=== PATIENT | male | born 1985 ===

== ENCOUNTER 2022-09-06 19:47 | Observation (INO) | payer MEDICAID, SELFPAY ==
[2022-09-06 19:59] VITALS: BP 151/93; PULSE 106; RESP 16; TEMP 38.2; O2SAT 98; BMI 33.3
[2022-09-06 20:30] LABS: Basophils # 0.1 10^3/uL (0.0-0.1); Basophils % 0.4 %; Eosinophils # 0.1 10^3/uL (0.0-0.8); Eosinophils % 0.5 %; Hematocrit 45.8 % (42.0-52.0); Hemoglobin 15.1 g/dL (11.7-16.6); Lymphocytes # 1.8 10^3/uL (0.8-4.8); Lymphocytes % 15.7 %; Mean Corpuscular Hemoglobin 28.6 pg (28.0-34.0); Mean Corpuscular Volume 86.7 fl (80-94); Monocytes # 0.6 10^3/uL (0.2-0.9); Monocytes % 5.2 %; Neutrophils # 9.13 10^3/uL (1.8-7.7); Neutrophils % 77.9 %; Nucleated Red Blood Cells % 0 %; Platelet Count 247 10^3/cmm (130-400); Red Blood Count 5.28 10^6/uL (4.1-5.3); Red Cell Distribution Width 12.4 % (12.1-15.1); White Blood Count 11.7 10^3/uL (4.0-10.0)
[2022-09-06 20:49] LABS: Alanine Aminotransferase 36 U/L (0-41); Albumin Level 4.4 g/dL (3.5-5.2); Alkaline Phosphatase 106 U/L (40-130); Blood Urea Nitrogen 12 mg/dL (6-20); Calcium 9.2 mg/dL (8.5-10.5); Carbon Dioxide 26 mmol/L (22-29); Chloride 100 mmol/L (98-107); Creatinine Clr Calc Pharmacy 129.6023; Globulin 2.1 g/dL (1.3-4.6); Glomerular Filtration Rate 108.2 mL/min (90-130); Glucose 100 mg/dL (65-115); Lipase 62 U/L (13-60); Osmolality Calculated 282 mOsm/kg (285-295); Sodium 136 mmol/L (136-145); Total Bilirubin 0.3 mg/dL (0.15-1.2); Total Protein 6.5 g/dL (6.6-8.7)
[2022-09-06 20:51] LABS: Anion Gap 14.2 (5-19); Aspartate Amino Transferase 19 U/L (0-40); Potassium 4.2 mmol/L (3.5-5.1)
--- NOTE | 2022-09-06 21:29 | CTR_ITS ---
PROCEDURE INFORMATION: Exam: CT Abdomen And Pelvis With Contrast Exam date and time: 09/06/2022 9:53 PM Age: 36 years old Clinical indication: Pain and abnormal findings; Abnormal lab test; Elevated lipase and elevated wbc; Abdominal pain; Localized; Right; Patient HX: RT sided abd pain with elevated wbc and lipase. ; Additional info: Right sided abdominal pain, tachy, febrile, wbc >11. Has had pepto in the last 48hrs TECHNIQUE: Imaging protocol: Computed tomography of the abdomen and pelvis with contrast. Radiation optimization: All CT scans at this facility use at least one of these dose optimization techniques: automated exposure control; mA and/or kV adjustment per patient size (includes targeted exams where dose is matched to clinical indication); or iterative reconstruction. Contrast material: OMNI 350; Contrast volume: 100 ml; Contrast route: INTRAVENOUS (IV); REPORTING DATA: Count of CT and Cardiac NM exams in prior 12 months: This patient has received 0 known CTs and 0 known cardiac nuclear medicine studies in the 12 months prior to the current study. COMPARISON: No relevant prior studies available. RADIATION DOSE METRICS: Total DLP (mGy-cm): 857.48 FINDINGS: Liver: Hepatic steatosis. Gallbladder and bile ducts: Normal. No calcified stones. No ductal dilation. Pancreas: Normal. No ductal dilation. Spleen: Normal. No splenomegaly. Adrenal glands: Normal. No mass. Kidneys and ureters: Normal. No hydronephrosis. Stomach and bowel: Unremarkable. No obstruction. No mucosal thickening. Appendix: Appendix dilated to 7.5 mm with surrounding edema and a small amount of nonlocalized fluid, findings are concerning for a developing appendicitis, please correlate clinically. Intraperitoneal space: Unremarkable. No free air. No significant fluid collection. Vasculature: Unremarkable. No abdominal aortic aneurysm. Lymph nodes: Unremarkable. No enlarged lymph nodes. Urinary bladder: Unremarkable as visualized. Reproductive: Unremarkable as visualized. Bones/joints: Bilateral L5 pars interarticularis defects. Soft tissues: Small left inguinal hernia containing omentum without bowel. CT/CT abdomen pelvis w con* [id number] IMPRESSION: 1. Appendix dilated to 7.5 mm with surrounding edema and a small amount of nonlocalized fluid, findings are concerning for a developing appendicitis, please correlate clinically. 2. Hepatic steatosis. 3. Bilateral L5 pars interarticularis defects. 4. Small left inguinal hernia containing omentum without bowel.
[2022-09-06] MEDS: ondansetron 2 mg/ML SDV 2 mL 4 MG IVP (21:46)
[2022-09-06] MEDS: ketorolac 30 mg/mL INJ IVP (21:46)
[2022-09-06] MEDS: sodium chloride 0.9% 1,000 ML 999 ML IV (21:46)
[2022-09-06] MEDS: iohexol 350 mg/mL 500 mL Btl (per mL) IV (21:54)
--- NOTE | 2022-09-06 22:12 | W.ED.ABDPA2 ---
HPI - Abdominal Pain General: Chief Complaint: Abdominal Pain Stated Complaint: ABD Pain Time Seen by Provider: 09/06/22 21:21 Source: patient and family Mode of arrival: ambulatory Limitations: no limitations History of Present Illness: Patient presents to the emergency department today accompanied by his for evaluation treatment of complaints of generalized right-sided abdominal pain, nausea, and chills. Patient noticed onset yesterday of some abdominal discomfort which has acutely worsened throughout the day today. He has been intensely nauseated but no vomiting. He has been chilled and they suspect fever at home but did not check. He denies diarrhea. He states he feels extremely bloated and full and has had very little p.o. intake today due to his symptoms. Patient states the last few days he was in [place] and then went to a wedding. He states during that time he only had approximately 4 beers. No others at home similarly ill. He has had generalized upper respiratory complaints for quite some time that are currently unchanged. He took Pepto yesterday without improvement. Review of Systems General: Reports: 10 or more systems reviewed and unremarkable except in HPI and below PFSH ED PFSH: Family History Grandmother Diabetes Social History Smoking and tobacco status: never smoked Alcohol intake: never Substance/Drug Use: never Adopted: No Caregiver/support person: No Lives independently: No Household members: spouse Current occupational status: employed Sexually active: Yes Do you think of yourself as: Straight/Heterosexual Current gender identity: Male Physical Exam Const: COMMON NORMALS: patient oriented x3 and alert OTHER: Patient appears nontoxic but obviously uncomfortable and feels unwell. HENMT: COMMON NORMALS: normocephalic, atraumatic, hearing grossly normal bilaterally and moist oral mucous membranes HEAD & SCALP: normocephalic and atraumatic Eye: COMMON NORMALS: Equal, round and reactive pupils present, EOMs intact bilaterally and conjunctivae normal CONJUNCTIVA: Yes conjunctivae normal PUPIL: Yes Equal, round and reactive pupils present Neck/C-Spine: COMMON NORMALS: full ROM and no JVD Lymph: LYMPHATIC: no lymphadenopathy noted Resp: COMMON NORMALS: normal respiratory effort, No retractions, No use of accessory muscles and clear to auscultation bilaterally AUSCULTATION: clear to auscultation bilaterally Cardio: COMMON NORMALS: no JVD, regular rate and regular rhythm RATE: regular rate RHYTHM: regular rhythm GI: OTHER: Abdomen does seem bloated and full though it is still soft on palpation. Patient with tenderness to the right lower abdomen extending up to the right lateral side of the umbilical region. Centeno's negative. No specific epigastric tenderness. Hyperactive bowel sounds throughout. : COMMON NORMALS: Yes no CVA tenderness BLADDER/KIDNEY EXAM: Yes no CVA tenderness Back/Pelvis: COMMON NORMALS: no CVA tenderness, no thoracic nor lumbar tenderness and thoraco-lumbar ROM normal Extremity: COMMON NORMALS: normal to inspection, full ROM and capillary refill normal Neuro: COMMON NORMALS: patient oriented x3 SENSORIUM/ORIENTATION: Yes alert Psych: COMMON NORMALS: mental status grossly normal, Normal thought process present, cooperative, normal affect and activity/motor behavior normal THOUGHT PROCESS: Normal thought process present Skin: COMMON NORMALS: no rashes or lesions noted and no wounds GENERAL SKIN EXAM: no rashes or lesions noted Course Vital Signs: Vital signs: Vital Signs Temperature 100.8 F H 09/07/22 00:23 Pulse Rate 97 09/07/22 00:23 Respiratory Rate 16 09/07/22 00:23 Blood Pressure 124/66 09/07/22 00:23 Pulse Oximetry 96 09/07/22 00:23 Oxygen Delivery Me thod Room Air 09/07/22 00:17 MDM - Abdominal Pain Medical Decision Making Patient presented to the emergency department today for general ill feeling, fever, and abdominal pain. Patient has had worsening abdominal pain over the last 48 hours without any known cause. While he has been nauseated he has not vomited. She denies diarrhea. No other similarly ill at home. Lab work showed slightly elevated white count and a slightly elevated lipase, but, I had concerns on his physical examination due to the tenderness he has in the right lower side. I did request we proceed on with CT exam which patient agreed. CT examination was concerning for onset acute appendicitis and I did receive a call from [facility] to discuss these results. I was able to speak with Dr. Jean with general surgery regarding the patient's findings here in the ER today. He requested patient be started on antibiotics, be given pain medicine, and Zofran. Patient was notified of his findings of appendicitis and need to remain in the hospital and admitted to general surgery patient verbalized understanding and agreement to treatment plan. We will defer care to general surgery specially at this time for further management, intervention, and treatment of this patient. Differential Diagnosis Likely abdominal pain, acute appendicitis, constipation, diverticulitis, gastroenteritis and pancreatitis Lab Data 09/06/22 20:23 09/06/22 20:23 Labs/Radiology: Radiology Impressions Abdomen/Pelvis CT 09/06/22 21:29 IMPRESSION: 1. Appendix dilated to 7.5 mm with surrounding edema and a small amount of nonlocalized fluid, findings are concerning for a developing appendicitis, please correlate clinically. 2. Hepatic steatosis. 3. Bilateral L5 pars interarticularis defects. 4. Small left inguinal hernia containing omentum without bowel. ADDENDUM: 09/06/222241 THIS REPORT CONTAINS FINDINGS THAT MAY BE CRITICAL TO PATIENT CARE. The findings were verbally communicated via telephone conference with ALAN PARK at 10:40 PM CDT on 09/06/2022. The findings were acknowledged and understood. Laboratory Results WBC 11.7 10^3/uL (4.0-10.0) H 09/06/22 20: RBC 5.28 10^6/uL (4.1-5.3) 09/06/22 20: Hgb 15.1 g/dL (11.7-16.6) 09/06/22 20: Hct 45.8 % (42.0-52.0) 09/06/22: MCV 86.7 fl (80-94) 09/06/22 20: MCH 28.6 pg (28.0-34.0) 09/06/22 20: MCHC 33.0 g/dL (30.0-36.0) 09/06/22: RDW 12.4 % (12.1-15.1) 09/06/22: Plt Count 247 10^3/cmm (130-400) 09/06/22 20: MPV 10.0 fL (7.4-10.4) 09/06/22 20: Neut % (Auto) 77.9 % 09/06/22: Lymph % (Auto) 15.7 % 09/06/22 20: [place] % (Auto) 5.2 % 09/06/22 20: Eos % (Auto) 0.5 % 09/06/22 20: Baso % (Auto) 0.4 % 09/06/22 20: Neut # (Auto) 9.13 10^3/uL (1.8-7.7) H 09/06/22 20: Lymph # (Auto) 1.8 10^3/uL (0.8-4.8) 09/06/22 20: [place] # (Auto) 0.6 10^3/uL (0.2-0.9) 09/06/22 20: Eos # (Auto) 0.1 10^3/uL (0.0-0.8) 09/06/22: Baso # (Auto) 0.1 10^3/uL (0.0-0.1) 09/06/22 20: Nucleated RBC % (auto) 0 % 09/06/22: Nucleated RBCs # 0.0 /100WBC 09/06/22 20: Sodium 136 mmol/L (136-145) 09/06/22 20: Potassium 4.2 mmol/L (3.5-5.1) 09/06/22 20: Chloride 100 mmol/L (98-107) 09/06/22 20: Carbon Dioxide 26 mmol/L (22-29) 09/06/22 20: Anion Gap 14.2 (5-19) 09/06/22 20: BUN 12 mg/dL (6-20) 09/06/22 20: Creatinine 0.8 mg/dL (0.7-1.2) 09/06/22 20: GFR Calculation 108.2 mL/min (90-130) 09/06/22 20: Glucose 100 mg/dL (65-115) 09/06/22 20: Calculated Osmolality 282 mOsm/kg (285-295) L 09/06/22 20: Calcium 9.2 mg/dL (8.5-10.5) 09/06/22 20: Total Bilirubin 0.3 mg/dL (0.15-1.2) 09/06/22 20: AST 19 U/L (0-40) 09/06/22 20: ALT 36 U/L (0-41) 09/06/22 20: Alkaline Phosphatase 106 U/L (40-130) 09/06/22 20: Total Protein 6.5 g/dL (6.6-8.7) L 09/06/22 20: Albumin 4.4 g/dL (3.5-5.2) 09/06/22 20: Globulin 2.1 g/dL (1.3-4.6) 09/06/22 20:23 Lipase 62 U/L (13-60) H 09/06/22 20:23 Urine Color Colorless (Yellow) 09/06/22 22:45 Urine Appearance Clear (CLEAR) 09/06/22 22:45 Urine pH 8 (5-7) H 09/06/22 22:45 Ur Specific [place] 1.005 (1.005-1.030) 09/06/22 22:45 Urine Protein Trace (Negative) 09/06/22 22:45 Urine Glucose (UA) Norm (Normal) 09/06/22 22:45 Urine Ketones Negative (Negative) 09/06/22 22:45 Urine Blood Neg (Negative) 09/06/22 22:45 Urine Nitrate Negative (Negative) 09/06/22 22:45 Urine Bilirubin Neg (Negative) 09/06/22 22:45 Prot Sulfosalicylic Acd Negative (Negative) 09/06/22 22:45 Urine Urobilinogen Norm mg/dL (Negative) 09/06/22 22:45 Ur Leukocyte Esterase Negative (Negative) 09/06/22 22:45 Urine RBC None /hpf (0-2) 09/06/22 22:45 Urine WBC None /hpf (0-5) 09/06/22 22:45 Ur Squamous Epith Cells None /hpf (0-5) 09/06/22 22:45 Amorphous Sediment Not Reportable 09/06/22 22:45 Urine Bacteria None /hpf (NONE) 09/06/22 22:45 Discharge Plan Discharge Patient Disposition: Admitted As Inpatient Admit Provider: Jam Jean Clinical Impression: Acute appendicitis Condition: Stable Coding Level of Care Code ED Clinical Appeals Auditor for Lizbet Guy
[2022-09-06 23:08] VITALS: BP 133/80; PULSE 95; RESP 16; O2SAT 93
[2022-09-06] MEDS: piperacillin-tazobactam 3.375 GM in sodium chloride 0.9% (plus) 50 ML IV (23:46)
[2022-09-06 23:47] VITALS: BP 124/66; PULSE 97; RESP 16; O2SAT 96
[2022-09-06 23:47] LABS: Bilirubin Urine Neg (Negative); Blood Urine Neg (Negative); Glucose Urine UA Norm (Normal); Ketones Urine Negative (Negative); Leukocyte Esterase Urine Negative (Negative); Nitrate Urine Negative (Negative); Protein Urine Trace (Negative); Specific Gravity, Urine 1.005 (1.005-1.030); Urine Appearance Clear (CLEAR); Urine Color Colorless (Yellow); Urobilinogen Urine Norm (Negative); pH Urine 8 (5-7)
[2022-09-06 23:48] LABS: Add Urine Microscopic? YES; Sulfosalicylic Acid Urine Negative (Negative)
[2022-09-07] VITALS (7 sets, daily range): BP systolic 108–144; BP diastolic 66–99; PULSE 73–97; RESP 16–18; TEMP 36.8–38.2; O2SAT 95–98
[2022-09-07] MEDS: sodium chloride 0.9% 1,000 ML 100 ML IV ×3 (00:29→19:29)
--- NOTE | 2022-09-07 00:37 | PC.NURSE ---
ADMIT NOTE Pt received to room from ED at 0014. Alert and oriented. with pt. Pt had start of abd pain in RLQ on 09/05 that kept getting worse. Pain /tenderness is present in RLQ of abd. Abd is soft. Reports has had some nausea without vomiting but mostly has just had no appetite and has felt bloated. Has had little po intake over last few days. Did have some lightheadedness. Reports some chills but unsure about fever. Received Zosyn in the ED that was just finishing on arrival to floor. IV fluids started at 100ml/hr rate. Will remain NPO. Mouth swabs given. RN completed admission assessment. VS check was done and oriented to room. Made aware of prn meds for pain & nausea
[2022-09-07] MEDS: piperacillin-tazobactam 3.375 GM in sodium chloride 0.9% (plus) 50 ML IV ×3 (06:29→22:51)
--- NOTE | 2022-09-07 11:21 | PM.HP ---
Providers/Chief Complaint Admitting Physician: Jam Jean DO Primary Care Provider: ELAINE Haro Chief Complaint: ABD Pain History of Present Illness Eduar Fernández is a 36 year old male who presented to the hospital with a 2-day history of abdominal pain. The pain is located in his right lower quadrant. Pain is sharp and intermittent. Palpation and movement makes pain worse. Nothing makes pain better. The pain does not radiate. He did initially have nausea and vomiting along with fever. Denies any diarrhea or constipation. Denies any hematochezia and/or melena. He reports that symptoms began the day after he came back from a wedding in [place]. He has had sinus congestion for the last [address] the abdomen pelvis shows relatively normal appendix with a small amount of fluid nearby. Review of Systems General: Reports: 10 or more systems reviewed and unremarkable except in HPI and below Medications/Allergies Home Medications Medication Instructions Recorded Confirmed Last Taken Type atorvastatin 10 mg tablet 10 mg PO DAILY 09/07/22 09/07/22 09/05/22 08:00 History phentermine 37.5 mg capsule 18.75 mg PO DAILY 09/07/22 09/07/22 08/24/22 History Allergies Allergy/AdvReac Type Severity Reaction Status Date / Time No Known Allergies Allergy Verified 12/02/20 11:04 PFSH Acute PFSH: Family History Grandmother Diabetes Social History Smoking and tobacco status: never smoked Alcohol intake: never Substance/Drug Use: never Adopted: No Caregiver/support person: No Lives independently: No Household members: spouse Current occupational status: employed Sexually active: Yes Do you think of yourself as: Straight/Heterosexual Current gender identity: Male Vitals/I&O/Wt Last Vital Signs Temp 98.3 F 09/07/22 08:00 Pulse 88 09/07/22 08:00 Resp 17 09/07/22 08:00 BP 132/77 09/07/22 08:00 Pulse Ox 97 09/07/22 08:00 O2 Del Method Room Air 09/07/22 08:00 09/06/22 09/07/22 09/07/22 22:59 06:59 14:59 Intake Total 1050 / 1050 1050 / 1050 Output Total 250 / 250 Balance 800 / 800 1050 / 1050 Weight last 48 hrs Weight 200 lb Physical Exam Narrative: General : Patient is well developed , no acute distress, oriented x3 Head : Normal cephalic, a-traumatic. Ears : Pinnae and external canal are normal. Hearing is normal. Eyes : PERRLA, Sclera and injection are normal. No conjunctival discharge. Nose : Mucous membranes are without erythema. Throat : buccal mucosa is normal, gums are without significant recession or hypertrophy. Lungs : Equal chest rise bilaterally, no use of accessory muscles, trachea is midline. Cor : Rate and rhythm are normal. Abdomen : Soft, ND, mild right lower quadrant tenderness, negative Rovsing's, no g/r/m Extremities : No edema, no cyanosis or clubbing, dorsalis pedis pulses are present bilaterally, non-tender to palpation of calves. Upper extremities are normal bilaterally. Back : non-tender to palpation, no CVA tenderness. Neuro : CN II - XII intact, Upper and lower extremities have equal and full strength Data 09/08/22 09:23 09/08/22 09:23 A&P Assessment and plan (1) Gastroenteritis: Plan Going to keep him overnight in observation as a rule out appendicitis. His appendix looks normal to me and the radiologist read it as possible early acute appendicitis. Appendicitis will declare itself if that is what he has and then we will go for appendectomy. He is happy with this plan. Regular diet for now and n.p.o. after midnight. See orders Attestations Medical Necessity Statement*: Patient requires at least 1 night in the hospital for observation for possible appendicitis Coding Level of Care Code 15342 Diagnoses Gastroenteritis K52.9
[2022-09-07] MEDS: acetaminophen 325 mg Tablet 650 MG PO (15:12)
[2022-09-08] VITALS: BP 150/75; PULSE 75; RESP 18; TEMP 37; O2SAT 94
[2022-09-08 04:00] VITALS: BP 124/76; PULSE 73; RESP 16; TEMP 37; O2SAT 97
[2022-09-08] MEDS: sodium chloride 0.9% 1,000 ML 100 ML IV (05:10)
[2022-09-08] MEDS: piperacillin-tazobactam 3.375 GM in sodium chloride 0.9% (plus) 50 ML IV (06:21)
[2022-09-08 08:00] VITALS: BP 121/67; PULSE 75; RESP 17; TEMP 36.8; O2SAT 96
[2022-09-08 09:55] LABS: Basophils % 0.6 %; Eosinophils # 0.1 10^3/uL (0.0-0.8); Eosinophils % 2.5 %; Hematocrit 43.9 % (42.0-52.0); Hemoglobin 14.5 g/dL (11.7-16.6); Lymphocytes % 39.6 %; Mean Corpuscular Hemoglobin 28.5 pg (28.0-34.0); Mean Corpuscular Volume 86.4 fl (80-94); Mean Platelet Volume 10.1 fL (7.4-10.4); Monocytes # 0.5 10^3/uL (0.2-0.9); Monocytes % 9.2 %; Neutrophils # 2.42 10^3/uL (1.8-7.7); Neutrophils % 47.5 %; Nucleated Red Blood Cells % 0 %; Platelet Count 229 10^3/cmm (130-400); Red Blood Count 5.08 10^6/uL (4.1-5.3); Red Cell Distribution Width 12.2 % (12.1-15.1); White Blood Count 5.1 10^3/uL (4.0-10.0)
[2022-09-08 10:27] LABS: Anion Gap 12.5 (5-19); Blood Urea Nitrogen 9 mg/dL (6-20); Calcium 8.4 mg/dL (8.5-10.5); Carbon Dioxide 25 mmol/L (22-29); Chloride 106 mmol/L (98-107); Glomerular Filtration Rate 126.2 mL/min (90-130); Glucose 106 mg/dL (65-115); Magnesium 2.1 mg/dL (1.7-2.3); Osmolality Calculated 287 mOsm/kg (285-295); Potassium 4.5 mmol/L (3.5-5.1); Sodium 139 mmol/L (136-145)
--- NOTE | 2022-09-08 10:57 | PM.DCS ---
Discharge Providers Date of Admission: 09/07/22 00:24 Date of Discharge: September 08, 2022 Attending Provider at Admission: Jam Jean DO Attending Provider at Discharge: Jam Jean DO Primary Care Provider: ELAINE Haro Diagnoses at Discharge Discharge Diagnosis (1) Gastroenteritis: Status: Acute Reason for Visit Reason for Visit: ABD Pain Hospital Course Hospital Course Patient presented to the hospital with a 2-day history of nausea vomiting and abdominal pain. CT the abdomen pelvis showed relatively normal appendix with some fluid near the appendix that was concerning for possible early acute appendicitis. See more likely that he had gastroenteritis. I kept him 1 day for observation and his symptoms improved, he was afebrile and left without leukocytosis. Physical Exam Narrative: General : Patient is well developed , no acute distress, oriented x3 Head : Normal cephalic, a-traumatic. Ears : Pinnae and external canal are normal. Hearing is normal. Eyes : PERRLA, Sclera and injection are normal. No conjunctival discharge. Nose : Mucous membranes are without erythema. Throat : buccal mucosa is normal, gums are without significant recession or hypertrophy. Lungs : Equal chest rise bilaterally, no use of accessory muscles, trachea is midline. Cor : Rate and rhythm are normal. Abdomen : Soft, ND, minimal right lower quadrant tenderness, no g/r/m Extremities : No edema, no cyanosis or clubbing, dorsalis pedis pulses are present bilaterally, non-tender to palpation of calves. Upper extremities are normal bilaterally. Back : non-tender to palpation, no CVA tenderness. Neuro : CN II - XII intact, Upper and lower extremities have equal and full strength Discharge Data Studies Completed and Pending Completed Studies During Hospitalization Category Date Time Status CT abdomen pelvis w con* [id number] Stat Cat Scan 09/06/22 21:29 Completed Radiology Impressions Abdomen/Pelvis CT 09/06/22 21:29 IMPRESSION: 1. Appendix dilated to 7.5 mm with surrounding edema and a small amount of nonlocalized fluid, findings are concerning for a developing appendicitis, please correlate clinically. 2. Hepatic steatosis. 3. Bilateral L5 pars interarticularis defects. 4. Small left inguinal hernia containing omentum without bowel. ADDENDUM: 09/06/22 1625 THIS REPORT CONTAINS FINDINGS THAT MAY BE CRITICAL TO PATIENT CARE. The findings were verbally communicated via telephone conference with ALAN PARK at 10:40 PM CDT on 09/06/2022. The findings were acknowledged and understood. Laboratory Results WBC 5.1 10^3/uL (4.0-10.0) 09/08/22 09: RBC 5.08 10^6/uL (4.1-5.3) 09/08/22 09: Hgb 14.5 g/dL (11.7-16.6) 09/08/22 09: Hct 43.9 % (42.0-52.0) 09/08/22 09: MCV 86.4 fl (80-94) 09/08/22 09: MCH 28.5 pg (28.0-34.0) 09/08/22: MCHC 33.0 g/dL (30.0-36.0) 09/08/22 09: RDW 12.2 % (12.1-15.1) 09/08/22: Plt Count 229 10^3/cmm (130-400) 09/08/22 09: MPV 10.1 fL (7.4-10.4) 09/08/22 09: Neut % (Auto) 47.5 % 09/08/22 09: Lymph % (Auto) 39.6 % 09/08/22 09: [place] % (Auto) 9.2 % 09/08/22 09: Eos % (Auto) 2.5 % 09/08/22: Baso % (Auto) 0.6 % 09/08/22: Neut # (Auto) 2.42 10^3/uL (1.8-7.7) 09/08/22 09: Lymph # (Auto) 2.0 10^3/uL (0.8-4.8) 09/08/22 09: [place] # (Auto) 0.5 10^3/uL (0.2-0.9) 09/08/22: Eos # (Auto) 0.1 10^3/uL (0.0-0.8) 09/08/22 09: Baso # (Auto) 0.0 10^3/uL (0.0-0.1) 09/08/22 09: Nucleated RBC % (auto) 0 % 07/25/23 09:23 Nucleated RBCs # 0.0 /100WBC 09/08/22 09:23 Sodium 139 mmol/L (136-145) 09/08/22 09:23 Potassium 4.5 mmol/L (3.5-5.1) 09/08/22 09:23 Chloride 106 mmol/L (98-107) 09/08/22 09:23 Carbon Dioxide 25 mmol/L (22-29) 09/08/22 09:23 Anion Gap 12.5 (5-19) 09/08/22 09:23 BUN 9 mg/dL (6-20) 09/08/22 09:23 Creatinine 0.7 mg/dL (0.7-1.2) 09/08/22 09: GFR Calculation 126.2 mL/min (90-130) 09/08/22 09: Glucose 106 mg/dL (65-115) 09/08/22 09:23 Calculated Osmolality 287 mOsm/kg (285-295) 09/08/22 09: Calcium 8.4 mg/dL (8.5-10.5) L 09/08/22 09:23 Magnesium 2.1 mg/dL (1.7-2.3) 09/08/22 09:23 Total Bilirubin 0.3 mg/dL (0.15-1.2) 09/06/22 20: AST 19 U/L (0-40) 09/06/22 20:23 ALT 36 U/L (0-41) 09/06/22 20:23 Alkaline Phosphatase 106 U/L (40-130) 09/06/22 20:23 Total Protein 6.5 g/dL (6.6-8.7) L 09/06/22 20: Albumin 4.4 g/dL (3.5-5.2) 09/06/22 20: Globulin 2.1 g/dL (1.3-4.6) 09/06/22 20: Lipase 62 U/L (13-60) H 09/06/22 20:23 Urine Color Colorless (Yellow) 09/06/22 22:45 Urine Appearance Clear (CLEAR) 09/06/22 22:45 Urine pH 8 (5-7) H 09/06/22 22:45 Ur Specific [place] 1.005 (1.005-1.030) 09/06/22 22:45 Urine Protein Trace (Negative) 09/06/22 22:45 Urine Glucose (UA) Norm (Normal) 09/06/22 22:45 Urine Ketones Negative (Negative) 09/06/22 22:45 Urine Blood Neg (Negative) 09/06/22 22:45 Urine Nitrate Negative (Negative) 09/06/22 22:45 Urine Bilirubin Neg (Negative) 09/06/22 22:45 Prot Sulfosalicylic Acd Negative (Negative) 09/06/22 22:45 Urine Urobilinogen Norm mg/dL (Negative) 09/06/22 22:45 Ur Leukocyte Esterase Negative (Negative) 09/06/22 22:45 Urine RBC None /hpf (0-2) 09/06/22 22:45 Urine WBC None /hpf (0-5) 09/06/22 22:45 Ur Squamous Epith Cells None /hpf (0-5) 09/06/22 22:45 Amorphous Sediment Not Reportable 09/06/22 22:45 Urine Bacteria None /hpf (NONE) 09/06/22 22:45 Vitals Last Vital Signs Temp 98.2 F 09/08/22 08:00 Pulse 75 09/08/22 08:00 Resp 17 09/08/22 08:00 BP 121/67 09/08/22 08:00 Pulse Ox 96 09/08/22 08:00 O2 Del Method Nasal Cannula 09/08/22 08:00 Discharge Plan Discharge Patient Disposition: Home Condition: Stable Prescriptions: New amoxicillin-pot clavulanate 875-125 mg tablet 1 tab PO BID Qty: 26 0RF DOK 100 mg capsule 100 mg PO BID Qty: 10 0RF hydrocodone-acetaminophen 7.5-325 mg tablet 1 tab PO Q6H PRN (Reason: pain) Qty: 14 0RF Continued atorvastatin 10 mg Tablet 10 mg PO DAILY phentermine 37.5 mg Capsule 18.75 mg PO DAILY Rx Instructions: must administer 30 minutes before or 1-2 hours after breakfast Discharge Orders: Discharge Order (Routine); Ordered 09/08/22 Ordered By: Jam Jean Referrals: Kirsty Chin [employer]CHNICIAN [Primary Care Provider] - 4-7 days Discharge Diet: Advance as tolerated Discharge Activity: Resume usual activity Patient Instructions: Opioid Safety Discharge Attestations Time Spent in Discharge Care*: less than 30 min Quality Metrics Clinical Quality Measures [ No reported AMI, CVA or VTE this stay] Coding Level of Care Code Acute Code for Chg Fwd Diagnoses Gastroenteritis K52.9
[2022-09-08 11:06] VITALS: BP 137/89; PULSE 78; RESP 16; TEMP 36.9; O2SAT 97
[2022-09-08 12:57] VITALS: BP 137/89; PULSE 78; RESP 16; TEMP 36.9; O2SAT 97
== END 2022-09-08 12:14 | disposition home or self-care (01) ==
LOC: ER 23:07 → MEDSURG 09-07 00:02
PROVIDERS: Emergency Medicine; Admitting Provider Surgery; Emergency Provider Physician Assistant; PCP Nurse Practitioner Family; Visit Provider Surgery
DX: K52.9 Noninfective gastroenteritis and colitis, unspecified (principal)
CPT/HCPCS: 36415; 74177; 80048; 80053; 81001; 83690; 83735; 85025; 96361; 96365; 96375; 99285; G0378; J1885; J2405; J2543; J7030; Q9967